=== PATIENT | male | born 1980 | race African-American/Black ===

== ENCOUNTER 2017-11-27 11:40 | Inpatient (IN) | payer OTHER ==
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
[2017-11-27 12:29] LABS: PH,URINE 5.5 (4.5-8); URINE APPEARANCE Clear; URINE BILIRUBIN Negative (NEGATIVE); URINE GLUCOSE (UA) Negative (NEGATIVE); URINE KETONE Negative (NEGATIVE); URINE LEUK ESTERASE Negative (NEGATIVE); URINE NITRITE Negative (NEGATIVE); URINE PROTEIN Negative (NEGATIVE); URINE UROBILINOGEN 0.2 (0.2-1.0)
[2017-11-27] MEDS ORDERED: SODIUM CHLORIDE 1,000 ML IV STA (12:34)
[2017-11-27] MEDS ORDERED: ONDANSETRON 4 MG/2 ML VIAL IVPB ONE (12:34)
[2017-11-27] MEDS ORDERED: PANTOPRAZOLE SODIUM 40 MG in SODIUM CHLORIDE 100 ML IVPB ONE (12:34)
[2017-11-27] MEDS ORDERED: morphine CARPU-JECT 4 MG/1 ML DISP.SYRIN IVPUSH ONE ×3 (12:35→16:31)
[2017-11-27 12:41] LABS: URINE BLOOD 1+ (NEGATIVE); URINE COLOR YELLOW
[2017-11-27] MEDS ORDERED: ONDANSETRON 4 MG/2 ML VIAL ONE (12:45)
[2017-11-27] MEDS ORDERED: morphine SULFATE 4 MG/ML VIAL ONE ×3 (12:45→15:52)
[2017-11-27] MEDS ORDERED: PANTOPRAZOLE SODIUM 40 MG VIAL ONE (12:45)
[2017-11-27 13:07] LABS: ALBUMIN 4.2 g/dl (3.5-5.0); ALK PHOS 60 U/L (32-92); ANION GAP 7 (8-16); BILIRUBIN,TOTAL 0.6 mg/dl (0.2-1.0); BLOOD UREA NITROGEN 12 mg/dl (7-18); CALCIUM 9.2 mg/dl (8.4-10.2); CHLORIDE 101 mmol/L (98-107); CO2 27 mmol/L (22-28); CREATININE 1.1 mg/dl (0.6-1.3); GLUCOSE,RANDOM 102 mg/dl (74-106); SGOT/AST 19 U/L (10-42); SGPT/ALT 24 U/L (10-40); SODIUM 135 mmol/L (136-145); TOT PROT 7.4 g/dl (6.4-8.3)
[2017-11-27 13:08] LABS: BASO % 0.4 % (0-2.0); EOS % 0.4 % (0-4.5); HEMATOCRIT 49.4 % (35.4-49); LYMPH % 12.8 % (8-40); MCH 31.6 pg (25.7-33.7); MCHC 34.4 g/dl (32.0-35.9); MEAN CELL VOLUME 91.8 fl (80-96); MONO % 5.9 % (3.8-10.2); NEUT % 80.5 % (42.8-82.8); PLATELET COUNT 318 K/MM3 (134-434); RBC 5.38 M/mm3 (4.00-5.60); RDW 12.2 % (11.9-15.9); WHITE BLOOD COUNT 17.6 K/mm3 (4.0-10.8)
[2017-11-27 13:32] LABS: URINE WBC 0-2 (0-2)
[2017-11-27 13:33] LABS: EPI CELLS NONE SEEN /HPF; URINE BACTERIA NONE SEEN /hpf (NEGATIVE)
[2017-11-27 13:58] LABS: LIPASE 147 U/L (73-393)
[2017-11-27] MEDS ORDERED: PIPERACIL/TAZOB 3.375 GM 3.375 GM/50 ML PREMIX IVPB ONE (15:15)
[2017-11-27] MEDS ORDERED: PIPERACILLIN/TAZOBACTAM 3.375 GM VIAL IVPB ONE (15:42)
[2017-11-27] MEDS ORDERED: MORPHINE SULFATE 10 MG/1 ML *VIAL IVPUSH PRN (16:02)
[2017-11-27] MEDS ORDERED: ONDANSETRON 4 MG/2 ML VIAL IVPUSH PRN (16:04)
--- NOTE | 2017-11-27 16:13 | HP ---
Admitting History and Physical - Admission Chief Complaint: abdominal pain History of Present Illness: This is a 37 year old male with hx of epilepsy s/p hard plate insertion ~5 years ago at [facility] in [place] presented with abdominal pain over the last few months and in the last few days it worsening. Last night he was nauseated and vomited, NBNB. He still has lower abdominal tenderness to palpation. He denies fever, chills, sob, cp. 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: Yes: Other (epilepsy s/p hard plate placemet ~ 5 years ago) - Smoking History Smoking history: Never smoked Have you smoked in the past 12 months: No - Alcohol/Substance Use Hx Alcohol Use: Yes (social ) History of Substance Use: reports: Marijuana - Social History Usual Living Arrangement: Yes: Alone ADL: Independent Home Medications - Allergies Allergies/Adverse Reactions: Allergies Allergy/AdvReac Type Severity Reaction Status Date / Time No Known Allergies Allergy Verified 11/27/17 11:43 - Home Medications Home Medications: Ambulatory Orders NK [No Known Home Medication] 11/27/17 Review of Systems - Review of Systems Constitutional: reports: No Symptoms Eyes: reports: No Symptoms HENT: reports: No Symptoms Neck: reports: No Symptoms Cardiovascular: reports: No Symptoms Respiratory: reports: No Symptoms Gastrointestinal: reports: Abdominal Pain, Nausea, Vomiting Genitourinary: reports: No Symptoms Musculoskeletal: reports: No Symptoms Integumentary: reports: No Symptoms Neurological: reports: No Symptoms Endocrine: reports: No Symptoms Hematology/Lymphatic: reports: No Symptoms Psychiatric: reports: No Symptoms Physical Examination Vital Signs: Vital Signs Temperature 99.5 F 11/27/17 11:40 Pulse Rate 112 H 11/27/17 11:40 Respiratory Rate 20 11/27/17 11:40 Blood Pressure 152/96 11/27/17 11:40 O2 Sat by Pulse Oximetry (%) 96 11/27/17 11:40 Constitutional: Yes: Well Nourished Eyes: Yes: Conjunctiva Clear HENT: Yes: Atraumatic Neck: Yes: Supple Cardiovascular: Yes: Regular Rate and Rhythm, S1, S2 Respiratory: Yes: Regular, CTA Bilaterally Gastrointestinal: Yes: Normal Bowel Sounds, Soft Renal/: Yes: WNL Extremities: Yes: WNL Edema: No Integumentary: Yes: WNL Neurological: Yes: Alert, Oriented, Cran Nerves II-XII Intact Psychiatric: Yes: Alert, Oriented Labs: CBC, BMP 11/27/17 12:15 11/27/17 12:15 Imaging - Results Cat Scan: Report Reviewed (marked thickening and irregularity of the proximal sigmoid colon w/ inflammatory stranding and trace free fluid c/w acute diverticulitis, no abscess seen) Problem List - Problems (1) Epilepsia Code(s): G40.909 - EPILEPSY, UNSP, NOT INTRACTABLE, WITHOUT STATUS EPILEPTICUS (2) Acute diverticulitis Code(s): K57.92 - DVTRCLI OF INTEST, PART UNSP, W/O PERF OR ABSCESS W/O BLEED Assessment/Plan Assessment: 37 year old male with epilepsy admitted with acute diverticulitis Plan: 1. Acute diverticulitis - x1 dose zosyn in ED - Start NS 100cc/hr - NPO - Abx per ID - ID consulted 2. Leukocytosis - Due to above 3. Epilepsy - s/p hard plate surgery, pt vague on details - Dose not take meds 4. DVT - Heparin TID Visit type - Emergency Visit Emergency Visit: Yes ED Registration Date: 11/27/17 Care time: The patient presented to the Emergency Department on the above date and was hospitalized for further evaluation of their emergent condition. - New Patient This patient is new to me today: Yes Date on this admission: 11/27/17 - Critical Care Critical Care patient: No
--- NOTE | 2017-11-27 16:58 | CON.ID ---
Consult Consult Specialty:: infectious diseases Reason for Consultation:: ac diverticulitits,leukocytosis - History of Present Illness Chief Complaint: abd pain History of Present Illness: 37 year old male with hx of epilepsy s/p hard plate insertion ~5 years ago at [facility] in [place] presented with abdominal pain over the last few months and in the last few days it worsening. 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 ~ 5 years ago) - Alcohol/Substance Use Hx Alcohol Use: Yes (social ) History of Substance Use: reports: Marijuana - Smoking History Smoking history: Never smoked Have you smoked in the past 12 months: No - Social History ADL: Independent Home Medications - Allergies Allergies/Adverse Reactions: Allergies Allergy/AdvReac Type Severity Reaction Status Date / Time No Known Allergies Allergy Verified 11/27/17 11:43 - Home Medications Home Medications: Ambulatory Orders NK [No Known Home Medication] 11/27/17 Review of Systems - Review of Systems Constitutional: reports: No Symptoms Eyes: reports: No Symptoms HENT: reports: No Symptoms Neck: reports: No Symptoms Cardiovascular: reports: No Symptoms Respiratory: reports: No Symptoms Gastrointestinal: reports: Abdominal Pain, Nausea Genitourinary: reports: No Symptoms Musculoskeletal: reports: No Symptoms Integumentary: reports: No Symptoms Neurological: reports: No Symptoms Endocrine: reports: No Symptoms Hematology/Lymphatic: reports: No Symptoms Psychiatric: reports: No Symptoms Physical Exam Vital Signs: Vital Signs Temperature 98.1 F 11/27/17 16:00 Pulse Rate 81 11/27/17 16:00 Respiratory Rate 18 11/27/17 16:00 Blood Pressure 138/75 11/27/17 16:00 O2 Sat by Pulse Oximetry (%) 98 11/27/17 16:00 Constitutional: Yes: Well Nourished, Moderate Distress, Obese Eyes: Yes: Conjunctiva Clear Cardiovascular: Yes: Regular Rate and Rhythm Respiratory: Yes: Regular, CTA Bilaterally Gastrointestinal: Yes: Soft, Hypoactive Bowel Sounds Musculoskeletal: Yes: WNL Extremities: Yes: WNL Neurological: Yes: Alert, Oriented Psychiatric: Yes: Alert, Oriented Labs: CBC, BMP 11/27/17 12:15 11/27/17 12:15 Imaging - Results Cat Scan: Report Reviewed, Image Reviewed Assessment/Plan ac divertculitis abd pain leukocytosis plan will star patient on abx hydration rest as per primary team
[2017-11-27] MEDS ORDERED: VANCOMYCIN 1,250 MG in DEXTROSE 5%-WATER - 250 ML IVPB SCH (17:00)
[2017-11-27] MEDS: SODIUM CHLORIDE 1,000 ML IV SCH (17:30)
[2017-11-27 17:51] LABS: URINE MUCUS 1+
[2017-11-27] MEDS ORDERED: PIPERACILLIN/TAZOB 3.375 GM 3.375 GM in DEXTROSE 5%-WATER - 100 ML IVPB SCH (18:00)
[2017-11-27] MEDS ORDERED: morphine CARPU-JECT 2 MG/1 ML DISP.SYRIN ONE (18:33)
[2017-11-27 19:05] VITALS: BMI 39.0
[2017-11-27] MEDS: PIPERACILLIN/TAZOB 3.375 GM/50 ML PRE-DOCKED IVPB SCH (21:53)
[2017-11-27] MEDS: HEPARIN NA (PORCINE) 5,000 UNITS/ML 1ML VIAL SQ SCH (21:53)
[2017-11-27] MEDS: morphine CARPU-JECT 2 MG/1 ML DISP.SYRIN IVPUSH PRN (22:28)
[2017-11-28] MEDS: morphine CARPU-JECT 2 MG/1 ML DISP.SYRIN IVPUSH PRN ×2 (05:29→08:37)
[2017-11-28] MEDS: HEPARIN NA (PORCINE) 5,000 UNITS/ML 1ML VIAL SQ SCH ×3 (05:29→21:16)
[2017-11-28 07:40] LABS: BASO % 2.4 % (0-2.0); EOS % 0.9 % (0-4.5); HEMATOCRIT 45.4 % (35.4-49); HEMOGLOBIN 15.2 GM/dl (11.7-16.9); LYMPH % 18.4 % (8-40); MCH 30.9 pg (25.7-33.7); MCHC 33.5 g/dl (32.0-35.9); MEAN CELL VOLUME 92.4 fl (80-96); MEAN PLT VOLUME 8.6 fl (7.5-11.1); MONO % 8.7 % (3.8-10.2); NEUT % 69.6 % (42.8-82.8); PLATELET COUNT 290 K/MM3 (134-434); RBC 4.91 M/mm3 (4.00-5.60); RDW 12.2 % (11.9-15.9); WHITE BLOOD COUNT 11.9 K/mm3 (4.0-10.8)
[2017-11-28 08:22] LABS: ALBUMIN 3.7 g/dl (3.5-5.0); ALK PHOS 53 U/L (32-92); ANION GAP 7 (8-16); BILIRUBIN,TOTAL 0.7 mg/dl (0.2-1.0); BLOOD UREA NITROGEN 12 mg/dl (7-18); CALCIUM 8.9 mg/dl (8.4-10.2); CHLORIDE 100 mmol/L (98-107); CO2 26 mmol/L (22-28); GLUCOSE,RANDOM 87 mg/dl (74-106); POTASSIUM 4.2 mmol/L (3.5-5.1); SGOT/AST 12 U/L (10-42); SGPT/ALT 18 U/L (10-40); SODIUM 133 mmol/L (136-145); TOT PROT 6.7 g/dl (6.4-8.3)
[2017-11-28] MEDS ORDERED: morphine CARPU-JECT 2 MG/1 ML DISP.SYRIN IVPUSH PRN ×2 (08:51→09:15)
--- NOTE | 2017-11-28 08:52 | PN ---
Physical Exam: SUBJECTIVE: Patient seen and examined. Complaining of severe LLQ pain which has not been alleviated by 2mg morphine q6h. No fevers/chills. OBJECTIVE: Vital Signs Period Temp Pulse Resp BP Sys/Oro Pulse Ox Last 24 Hr 98.1 F-99.5 F 81-112 16-20 128-152/75-96 96-99 GENERAL: The patient is awake, alert, and fully oriented, in some distress secondary to pain. HEAD: Normal with no signs of trauma. EYES: PERRL, extraocular movements intact, sclera anicteric, conjunctiva clear. No ptosis. ENT: Ears normal, nares patent, oropharynx clear without exudates, moist mucous membranes. NECK: Trachea midline, full range of motion, supple. LUNGS: Breath sounds equal, clear to auscultation bilaterally, no wheezes, no crackles, no accessory muscle use. HEART: Regular rate and rhythm, S1, S2 without murmur, rub or gallop. ABDOMEN: Soft, tender to gentle palpation LLW, nondistended, no peritoneal signs. EXTREMITIES: 2+ pulses, warm, well-perfused, no edema. NEUROLOGICAL: Cranial nerves II through XII grossly intact. Normal speech, gait not observed. PSYCH: Normal mood, normal affect. SKIN: Warm, dry, normal turgor, no rashes or lesions noted Laboratory Results - last 24 hr 11/27/17 11/27/17 11/27/17 11:48 12:15 12:15 WBC 17.6 H RBC 5.38 Hgb 17.0 H Hct 49.4 H MCV 91.8 MCH 31.6 MCHC 34.4 RDW 12.2 Plt Count 318 MPV 9.0 Neutrophils % 80.5 Lymphocytes % 12.8 Monocytes % 5.9 Eosinophils % 0.4 Basophils % 0.4 Sodium 135 L Potassium 4.0 Chloride 101 Carbon Dioxide 27 Anion Gap 7 L BUN 12 Creatinine 1.1 Creat Clearance w eGFR > 60 Random Glucose 102 Calcium 9.2 Total Bilirubin 0.6 AST 19 ALT 24 Alkaline Phosphatase 60 Total Protein 7.4 Albumin 4.2 Lipase 147 Urine Color Yellow Urine Appearance Clear Urine pH 5.5 Ur Specific [place] >= 1.030 H Urine Protein Negative Urine Glucose (UA) Negative Urine Ketones Negative Urine Blood 1+ H Urine Nitrite Negative Urine Bilirubin Negative Urine Urobilinogen 0.2 Ur Leukocyte Esterase Negative Urine RBC 3-5 Urine WBC 0-2 Ur Epithelial Cells None seen Urine Bacteria None seen Urine Mucus 1+ 11/28/17 11/28/17 07:30 07:30 WBC 11.9 H D RBC 4.91 Hgb 15.2 D Hct 45.4 MCV 92.4 MCH 30.9 MCHC 33.5 RDW 12.2 Plt Count 290 MPV 8.6 Neutrophils % 69.6 Lymphocytes % 18.4 D Monocytes % 8.7 Eosinophils % 0.9 D Basophils % 2.4 H D Sodium 133 L Potassium 4.2 Chloride 100 Carbon Dioxide 26 Anion Gap 7 L BUN 12 Creatinine 1.0 Creat Clearance w eGFR > 60 Random Glucose 87 Calcium 8.9 Total Bilirubin 0.7 AST 12 D ALT 18 D Alkaline Phosphatase 53 Total Protein 6.7 Albumin 3.7 Lipase Urine Color Urine Appearance Urine pH Ur Specific [place] Urine Protein Urine Glucose (UA) Urine Ketones Urine Blood Urine Nitrite Urine Bilirubin Urine Urobilinogen Ur Leukocyte Esterase Urine RBC Urine WBC Ur Epithelial Cells Urine Bacteria Urine Mucus Active Medications Generic Name Dose Route Start Last Admin Trade Name Freq PRN Reason Stop Dose Admin Heparin Sodium (Porcine) 5,000 unit 11/27/17 22:00 11/28/17 05:29 Heparin - SQ 5,000 unit TID ANABELLA Administration Sodium Chloride 1,000 mls @ 100 mls/hr 11/27/17 16:15 11/27/17 17:30 Normal Saline - IV 100 mls/hr ASDIR ANABELLA Administration Morphine Sulfate 4 mg 11/28/17 08:51 Morphine Injection - IVPUSH Q4H PRN PAIN LEVEL 4 - 6 Ondansetron HCl 4 mg 11/27/17 16:04 Zofran Injection IVPUSH Q6H PRN NAUSEA Pantoprazole Sodium 40 mg 11/28/17 10:00 Protonix Iv IVPUSH DAILY ANABELLA Piperacillin Sod/Tazobactam Sod 3.375 gm 11/27/17 22:00 11/27/17 21:53 Zosyn 3.375gm Ivpb (Pre-Docked) IVPB 3.375 gm Q8H-IV ANABELLA Administration ASSESSMENT/PLAN: 37 year old male with epilepsy admitted with acute diverticulitis. 1. Acute diverticulitis - Continue Zosyn per ID - Continue IV - NPO - Patient reports he has had "many" episodes of diverticulitis in the past, treated at [facility]. He is unsure exactly how many but is sure it is >3. Will consult surgery - discussed with Dr. Pizarro. 2. Leukocytosis - Improving 3. Epilepsy - s/p hard plate surgery, pt vague on details - Dose not take meds 4. DVT - Heparin TID Visit type Visit type - Emergency Visit Emergency Visit: Yes ED Registration Date: 11/27/17 Care time: The patient presented to the Emergency Department on the above date and was hospitalized for further evaluation of their emergent condition. - New Patient This patient is new to me today: Yes Date on this admission: 11/30/17 - Critical Care Critical Care patient: No
[2017-11-28] MEDS ORDERED: morphine CARPU-JECT 4 MG/1 ML DISP.SYRIN IVPB ONE (09:01)
[2017-11-28] MEDS ORDERED: morphine SULFATE 4 MG/ML VIAL IV PRN (09:13)
[2017-11-28] MEDS: PANTOPRAZOLE SODIUM 40 MG VIAL IVPUSH SCH (09:22)
[2017-11-28] MEDS: PIPERACILLIN/TAZOB 3.375 GM/50 ML PRE-DOCKED IVPB SCH ×2 (09:40→17:34)
--- NOTE | 2017-11-28 12:25 | CONSULT ---
- Consultation REQUESTING PROVIDER: Melody Mendosa NP CONSULT REQUEST: We have been asked to surgically evaluate this patient for diverticulitis PCP:Melody Mendosa NP HISTORY OF PRESENT ILLNESS:37 y/o male presented w/ sharp sudden onset of LLQ abdominal pain w/associated nausea and vomiting; he last had this 5 years ago and ? before that ?; he came to the ER for evaluation. He has no other GI/ c/o; he states he had colonoscopy in the past at [facility] in the [place]; he states he was ? never told he had diverticulosis ?. He is a fair historian. PMHx: seizure disorder PSHx: cranial surgery Home Medications Medication Instructions Recorded NK [No Known Home Medication] 11/27/17 Allergies Allergy/AdvReac Type Severity Reaction Status Date / Time No Known Allergies Allergy Verified 11/27/17 11:43 PHYSICAL EXAM: GENERAL: Awake, alert, and fully oriented, in slight distress c/o LLQ pain.. HEAD: Normal with no signs of trauma. EYES: PERRL, sclera anicteric, conjunctiva clear. NECK: Normal ROM, supple without lymphadenopathy, JVD, or masses. ABDOMEN: Soft,LLQ tendernes w/guarding, not distended, normoactive bowel sounds , no rebound, no masses. No organomegaly. No hernias or sign of an acute surgical abdomen. MUSCULOSKELETAL: Normal ROM at all joints. No bony deformities or tenderness. No CVA tenderness. UPPER EXTREMITIES: 2+ pulses, warm, well-perfused. No cyanosis. Cap refill <2 seconds. No peripheral edema. LOWER EXTREMITIES: 2+ pulses, warm, well-perfused. No calf tenderness. No peripheral edema. NEUROLOGICAL: Normal speech, gait not observed. PSYCH: Cooperative. Good eye contact. Appropriate mood and affect. SKIN: Warm, dry, normal turgor, no rashes or lesions noted. Vital Signs Temperature 98.5 F 11/28/17 10:38 Pulse Rate 88 11/28/17 10:38 Respiratory Rate 18 11/28/17 10:38 Blood Pressure 126/72 11/28/17 10:38 O2 Sat by Pulse Oximetry (%) 96 11/28/17 06:03 Lab Results WBC 11.9 K/mm3 (4.0-10.8) H D 11/28/17 07:30 RBC 4.91 M/mm3 (4.00-5.60) 11/28/17 07:30 Hgb 15.2 GM/dl (11.7-16.9) D 11/28/17 07:30 Hct 45.4 % (35.4-49) 11/28/17 07:30 MCV 92.4 fl (80-96) 11/28/17 07:30 MCHC 33.5 g/dl (32.0-35.9) 11/28/17 07:30 RDW 12.2 % (11.9-15.9) 11/28/17 07:30 Plt Count 290 K/MM3 (134-434) 11/28/17 07:30 Sodium 133 mmol/L (136-145) L 11/28/17 07:30 Potassium 4.2 mmol/L (3.5-5.1) 11/28/17 07:30 Chloride 100 mmol/L (98-107) 11/28/17 07:30 Carbon Dioxide 26 mmol/L (22-28) 11/28/17 07:30 Anion Gap 7 (8-16) L 11/28/17 07:30 BUN 12 mg/dl (7-18) 11/28/17 07:30 Creatinine 1.0 mg/dl (0.6-1.3) 11/28/17 07:30 Random Glucose 87 mg/dl (74-106) 11/28/17 07:30 Calcium 8.9 mg/dl (8.4-10.2) 11/28/17 07:30 CT a/p reviewed; report and images IMP: acute sigmoid diverticulitis w/p perforation and/or abscess formation. PLAN: Continue NPO/IVF/IVABS; would get f/u imaging after the weekend; if he responds to the tx. plan he will need outpatient colonoscopy in 8-12 weeks and of course surgical f/u; will f/u. Petey Pizarro MD [facility] Visit type - Case Type Case Type: ED Admission - Emergency Emergency Visit: Yes ED Registration Date: 11/27/17 Care time: The patient presented to the Emergency Department on the above date and was hospitalized for further evaluation of their emergent condition. - New patient This patient is new to me today: Yes Date on this admission: 11/28/17
[2017-11-28 12:30] LABS: LIPASE 106 U/L (73-393)
--- NOTE | 2017-11-28 14:54 | PN ---
Progress Note, Physician History of Present Illness: Pt seen and examined. Chart reviewed, lab/imaging results noted. Today he states he still has abd pain. No fever/chills/n/v/d. - Current Medication List Current Medications: Active Medications Heparin Sodium (Porcine) (Heparin -) 5,000 unit SQ TID [facility] Last Admin: 11/28/17 13:16 Dose: 5,000 unit Sodium Chloride (Normal Saline -) 1,000 mls @ 100 mls/hr IV ASDIR [facility] Last Admin: 11/27/17 17:30 Dose: 100 mls/hr Morphine Sulfate (Morphine Sulfate) 4 mg IV ONCE PRN PRN Reason: PAIN LEVEL 6-10 Stop: 11/29/17 09:12 Last Admin: 11/28/17 09:20 Dose: 4 mg Morphine Sulfate (Morphine Sulfate) 4 mg IVPUSH Q4H PRN PRN Reason: PAIN LEVEL 4 - 6 Stop: 12/01/17 13:22 Ondansetron HCl (Zofran Injection) 4 mg IVPUSH Q6H PRN PRN Reason: NAUSEA Pantoprazole Sodium (Protonix Iv) 40 mg IVPUSH DAILY [facility] Last Admin: 11/28/17 09:22 Dose: 40 mg Piperacillin Sod/Tazobactam Sod (Zosyn 3.375gm Ivpb (Pre-Docked)) 3.375 gm IVPB Q8H-IV [facility] Last Admin: 11/28/17 09:40 Dose: 3.375 gm - Objective Vital Signs: Vital Signs Temperature 98.5 F 11/28/17 10:38 Pulse Rate 88 11/28/17 10:38 Respiratory Rate 18 11/28/17 10:38 Blood Pressure 126/72 11/28/17 10:38 O2 Sat by Pulse Oximetry (%) 96 11/28/17 06:03 Constitutional: Yes: No Distress Cardiovascular: Yes: Regular Rate and Rhythm Respiratory: Yes: CTA Bilaterally Gastrointestinal: Yes: Normal Bowel Sounds, Soft, Tenderness (b/l Lower abd pain L>R) Genitourinary: Yes: WNL Extremities: Yes: WNL Integumentary: Yes: WNL Neurological: Yes: Alert, Oriented Labs: CBC, BMP 11/28/17 07:30 11/28/17 07:30 Problem List - Problems (1) Acute diverticulitis Code(s): K57.92 - DVTRCLI OF INTEST, PART UNSP, W/O PERF OR ABSCESS W/O BLEED (2) Epilepsia Code(s): G40.909 - EPILEPSY, UNSP, NOT INTRACTABLE, WITHOUT STATUS EPILEPTICUS Assessment/Plan leukocytosis resolving - continue Zosyn - monitor vitals - surgery following pain control
[2017-11-28] MEDS: SODIUM CHLORIDE 1,000 ML IV SCH (17:34)
[2017-11-28] MEDS: morphine SULFATE 4 MG/ML VIAL IVPUSH PRN (20:05)
[2017-11-29] MEDS: PIPERACILLIN/TAZOB 3.375 GM/50 ML PRE-DOCKED IVPB SCH ×3 (01:45→18:01)
[2017-11-29] MEDS: morphine SULFATE 4 MG/ML VIAL IVPUSH PRN (05:03)
[2017-11-29] MEDS: HEPARIN NA (PORCINE) 5,000 UNITS/ML 1ML VIAL SQ SCH ×3 (07:00→21:53)
[2017-11-29 08:48] LABS: BASO % 0.5 % (0-2.0); EOS % 1.8 % (0-4.5); HEMATOCRIT 44.3 % (35.4-49); HEMOGLOBIN 14.9 GM/dl (11.7-16.9); LYMPH % 25.8 % (8-40); MCHC 33.6 g/dl (32.0-35.9); MEAN CELL VOLUME 92.3 fl (80-96); MEAN PLT VOLUME 9.5 fl (7.5-11.1); MONO % 9.7 % (3.8-10.2); NEUT % 62.2 % (42.8-82.8); PLATELET COUNT 275 K/MM3 (134-434); RDW 12.1 % (11.9-15.9); WHITE BLOOD COUNT 9.1 K/mm3 (4.0-10.8)
[2017-11-29 08:54] LABS: ANION GAP 9 (8-16); BLOOD UREA NITROGEN 14 mg/dl (7-18); CALCIUM 8.7 mg/dl (8.4-10.2); CHLORIDE 102 mmol/L (98-107); CO2 24 mmol/L (22-28); GLUCOSE,RANDOM 65 mg/dl (74-106); POTASSIUM 3.8 mmol/L (3.5-5.1); SODIUM 135 mmol/L (136-145)
[2017-11-29] MEDS: PANTOPRAZOLE SODIUM 40 MG VIAL IVPUSH SCH (09:26)
[2017-11-29] MEDS ORDERED: ACETAMINOPHEN 1000 MG/100 ML VIAL (NON FORMULARY) IVPB PRN (10:23)
[2017-11-29] MEDS ORDERED: D5-1/2NS+10 MEQ KCL - 10 MEQ/1,000 ML INFUS.BAG IV SCH (10:30)
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
[2017-11-29] MEDS: DEXTROSE 5%-0.45% SALINE 1,000 ML IV SCH (11:31)
--- NOTE | 2017-11-29 16:32 | PN ---
Progress Note, Physician History of Present Illness: Pt is feeling better. Less abd pain today. Had 1 loose BM earlier today. No new complaints. - Current Medication List Current Medications: Active Medications Acetaminophen (Ofirmev Injection -) 1,000 mg IVPB Q6H PRN PRN Reason: PAIN LEVEL 1-5 Heparin Sodium (Porcine) (Heparin -) 5,000 unit SQ TID [facility] Last Admin: 11/29/17 14:00 Dose: Not Given Dextrose/Sodium Chloride (D5-1/2ns -) 1,000 mls @ 100 mls/hr IV ASDIR [facility] Last Admin: 11/29/17 11:31 Dose: 100 mls/hr Morphine Sulfate (Morphine Sulfate) 4 mg IVPUSH Q4H PRN PRN Reason: PAIN LEVEL 4 - 6 Stop: 12/01/17 13:22 Last Admin: 11/29/17 05:03 Dose: 4 mg Ondansetron HCl (Zofran Injection) 4 mg IVPUSH Q6H PRN PRN Reason: NAUSEA Pantoprazole Sodium (Protonix Iv) 40 mg IVPUSH DAILY [facility] Last Admin: 11/29/17 09:26 Dose: 40 mg Piperacillin Sod/Tazobactam Sod (Zosyn 3.375gm Ivpb (Pre-Docked)) 3.375 gm IVPB Q8H-IV [facility] Last Admin: 11/29/17 09:31 Dose: 3.375 gm - Objective Vital Signs: Vital Signs Temperature 98.8 F 11/29/17 14:00 Pulse Rate 68 11/29/17 14:00 Respiratory Rate 18 11/29/17 14:00 Blood Pressure 124/75 11/29/17 14:00 O2 Sat by Pulse Oximetry (%) 98 11/29/17 14:00 Constitutional: Yes: No Distress, Calm Cardiovascular: Yes: Regular Rate and Rhythm Respiratory: Yes: Regular Gastrointestinal: Yes: Normal Bowel Sounds, Soft, Tenderness (lower abdominal pain, no guarding) Genitourinary: Yes: WNL Neurological: Yes: Alert, Oriented Labs: CBC, BMP 11/29/17 08:00 11/29/17 08:00 Problem List - Problems (1) Acute diverticulitis Code(s): K57.92 - DVTRCLI OF INTEST, PART UNSP, W/O PERF OR ABSCESS W/O BLEED (2) Epilepsia Code(s): G40.909 - EPILEPSY, UNSP, NOT INTRACTABLE, WITHOUT STATUS EPILEPTICUS Qualifiers: Epilepsy type: unspecified Assessment/Plan Acute diverticulitis - appears to be clinically improving, afebrile, leukocytosis resolved - continue Zosyn - monitor vitals - surgery following
[2017-11-30] MEDS: PIPERACILLIN/TAZOB 3.375 GM/50 ML PRE-DOCKED IVPB SCH ×3 (03:00→18:04)
[2017-11-30] MEDS ORDERED: PT OWN MED DRAWER 7, Y5N ONE (05:41)
[2017-11-30] MEDS: HEPARIN NA (PORCINE) 5,000 UNITS/ML 1ML VIAL SQ SCH ×3 (06:13→22:22)
[2017-11-30] MEDS ORDERED: oxyCODONE HCL 5 MG TABLET PO PRN (07:01)
--- NOTE | 2017-11-30 07:02 | PN ---
Physical Exam: SUBJECTIVE: Patient seen and examined. Reports that he is feeling much better. Abdominal pain has improved. Having stools. No fevers/chills or nausea/vomiting. OBJECTIVE: Vital Signs Period Temp Pulse Resp BP Sys/Oro Pulse Ox Last 24 Hr 97.8 F-98.9 F 63-88 18-19 116-131/75-98 96-100 GENERAL: The patient is awake, alert, and fully oriented, in no acute distress. HEAD: Normal with no signs of trauma. EYES: PERRL, extraocular movements intact, sclera anicteric, conjunctiva clear. No ptosis. ENT: Ears normal, nares patent, oropharynx clear without exudates, moist mucous membranes. NECK: Trachea midline, full range of motion, supple. LUNGS: Breath sounds equal, clear to auscultation bilaterally, no wheezes, no crackles, no accessory muscle use. HEART: Regular rate and rhythm, S1, S2 without murmur, rub or gallop. ABDOMEN: Soft, mild tenderness LLQ without guarding or rebound tenderness, nondistended, normoactive bowel sounds, no guarding, no rebound, no hepatosplenomegaly, no masses. EXTREMITIES: 2+ pulses, warm, well-perfused, no edema. NEUROLOGICAL: Cranial nerves II through XII grossly intact. Normal speech, gait not observed. PSYCH: Normal mood, normal affect. SKIN: Warm, dry, normal turgor, no rashes or lesions noted Laboratory Results - last 24 hr 11/29/17 11/29/17 08:00 08:00 WBC 9.1 RBC 4.80 Hgb 14.9 Hct 44.3 MCV 92.3 MCH 31.0 MCHC 33.6 RDW 12.1 Plt Count 275 MPV 9.5 D Neutrophils % 62.2 Lymphocytes % 25.8 D Monocytes % 9.7 Eosinophils % 1.8 D Basophils % 0.5 Sodium 135 L Potassium 3.8 Chloride 102 Carbon Dioxide 24 Anion Gap 9 BUN 14 Creatinine 1.0 Random Glucose 65 L D Calcium 8.7 Active Medications Generic Name Dose Route Start Last Admin Trade Name Freq PRN Reason Stop Dose Admin Acetaminophen 1,000 mg 11/29/17 10:23 Ofirmev Injection - IVPB Q6H PRN PAIN LEVEL 1-5 Heparin Sodium (Porcine) 5,000 unit 11/27/17 22:00 11/30/17 06:13 Heparin - SQ Not Given TID ANABELLA Dextrose/Sodium Chloride 1,000 mls @ 100 mls/hr 11/29/17 11:30 11/29/17 11:31 D5-1/2ns - IV 100 mls/hr ASDIR ANABELLA Administration Morphine Sulfate 4 mg 11/28/17 13:23 11/29/17 05:03 Morphine Sulfate IVPUSH 12/01/17 13:22 4 mg Q4H PRN Administration PAIN LEVEL 4 - 6 Ondansetron HCl 4 mg 11/27/17 16:04 Zofran Injection IVPUSH Q6H PRN NAUSEA Pantoprazole Sodium 40 mg 11/28/17 10:00 11/29/17 09:26 Protonix Iv IVPUSH 40 mg DAILY [facility] Administration Piperacillin Sod/Tazobactam Sod 3.375 gm 11/27/17 22:00 11/30/17 03:00 Zosyn 3.375gm Ivpb (Pre-Docked) IVPB 3.375 gm Q8H-IV [facility] Administration ASSESSMENT/PLAN: 37 year old male with epilepsy admitted with acute diverticulitis. 1. Acute diverticulitis - Continue Zosyn per ID - Continue IV fluids - Symptoms improved - trial of clears today - Patient reports he has had "many" episodes of diverticulitis in the past, treated at [facility]. He is unsure exactly how many but is sure it is >3. Surgery following. 2. Leukocytosis - Resolved 3. Epilepsy - s/p hard plate surgery, pt vague on details - Dose not take meds 4. DVT - Heparin TID DISPO: Requires inpatient services pending advancement of diet/tolerance of oral antibiotics. Visit type - Emergency Visit Emergency Visit: Yes ED Registration Date: 11/27/17 Care time: The patient presented to the Emergency Department on the above date and was hospitalized for further evaluation of their emergent condition. - New Patient This patient is new to me today: No - Critical Care Critical Care patient: No
--- NOTE | 2017-11-30 07:52 | PN ---
Progress Note (short form) - Note Progress Note: Pt states that he is having loose/watery stools. Non-bloody. No nausea or emesis , he states that he is feeling better and hasn't used pain medications over the past day. Vital Signs Period Temp Pulse Resp BP Sys/Oro Pulse Ox Last 24 Hr 97.8 F-98.9 F 63-88 18-19 116-131/75-98 96-100 GEN: appears comfortable ABD: soft, non-distended, mild tenderness to mid abd Left>right at level of umbilicus. No rebound or gaurding CBC/Chem pending A/P: 37 yo male with acute diverticulitis, no abscess or collection Pt starting trial of clears today, d/w the patient if his pain or nausea worsens to resume npo D/w Dr. Pizarro, will need repeat imaging(ct scan)tomorrow Cont IV abx
[2017-11-30 09:14] LABS: BASO % 0.8 % (0-2.0); EOS % 2.5 % (0-4.5); HEMATOCRIT 44.4 % (35.4-49); HEMOGLOBIN 15.6 GM/dl (11.7-16.9); LYMPH % 25.2 % (8-40); MCH 31.9 pg (25.7-33.7); MCHC 35.1 g/dl (32.0-35.9); MEAN CELL VOLUME 90.9 fl (80-96); MEAN PLT VOLUME 9.2 fl (7.5-11.1); MONO % 8.9 % (3.8-10.2); NEUT % 62.6 % (42.8-82.8); PLATELET COUNT 319 K/MM3 (134-434); RBC 4.88 M/mm3 (4.00-5.60); RDW 11.9 % (11.9-15.9); WHITE BLOOD COUNT 7.8 K/mm3 (4.0-10.8)
[2017-11-30] MEDS: PANTOPRAZOLE SODIUM 40 MG VIAL IVPUSH SCH (10:00)
[2017-11-30 10:08] LABS: ALBUMIN 3.7 g/dl (3.5-5.0); ALK PHOS 46 U/L (32-92); ANION GAP 10 (8-16); BLOOD UREA NITROGEN 11 mg/dl (7-18); CALCIUM 8.9 mg/dl (8.4-10.2); CHLORIDE 100 mmol/L (98-107); CO2 25 mmol/L (22-28); CREATININE 1.1 mg/dl (0.6-1.3); GLUCOSE,RANDOM 85 mg/dl (74-106); MAGNESIUM 2.1 mg/dL (1.8-2.4); PHOSPHOROUS 4.1 mg/dl (2.5-4.6); POTASSIUM 4.1 mmol/L (3.5-5.1); SGOT/AST 14 U/L (10-42); SGPT/ALT 16 U/L (10-40); SODIUM 135 mmol/L (136-145); TOT PROT 6.9 g/dl (6.4-8.3)
[2017-11-30] MEDS: DEXTROSE 5%-0.45% SALINE 1,000 ML IV SCH (11:54)
--- NOTE | 2017-11-30 13:58 | EKG ---
Test Reason : Blood Pressure : / mmHG Vent. Rate : 093 BPM Atrial Rate : 093 BPM P-R Int : 174 ms QRS Dur : 078 ms QT Int : 326 ms P-R-T Axes : 052 012 024 degrees QTc Int : 405 ms NORMAL SINUS RHYTHM NORMAL ECG NO PREVIOUS ECGS AVAILABLE Confirmed by SHU PEREZ MD ([id number]) on 11/30/2017 1:58:22 PM Referred By: MD FREED Confirmed By:SHU PEREZ MD
--- NOTE | 2017-11-30 15:28 | PN ---
Progress Note, Physician History of Present Illness: feels better still has some abd pain - Current Medication List Current Medications: Active Medications Acetaminophen (Ofirmev Injection -) 1,000 mg IVPB Q6H PRN PRN Reason: PAIN LEVEL 1-5 Heparin Sodium (Porcine) (Heparin -) 5,000 unit SQ TID [facility] Last Admin: 11/30/17 06:13 Dose: Not Given Dextrose/Sodium Chloride (D5-1/2ns -) 1,000 mls @ 100 mls/hr IV ASDIR [facility] Last Admin: 11/30/17 11:54 Dose: 100 mls/hr Ondansetron HCl (Zofran Injection) 4 mg IVPUSH Q6H PRN PRN Reason: NAUSEA Oxycodone HCl (Roxicodone -) 5 mg PO Q6H PRN PRN Reason: PAIN LEVEL 6-10 Pantoprazole Sodium (Protonix Iv) 40 mg IVPUSH DAILY [facility] Last Admin: 11/30/17 10:00 Dose: 40 mg Piperacillin Sod/Tazobactam Sod (Zosyn 3.375gm Ivpb (Pre-Docked)) 3.375 gm IVPB Q8H-IV [facility] Last Admin: 11/30/17 10:00 Dose: 3.375 gm - Objective Vital Signs: Vital Signs Temperature 98.2 F 11/30/17 14:41 Pulse Rate 77 11/30/17 14:41 Respiratory Rate 18 11/30/17 14:41 Blood Pressure 129/92 11/30/17 14:41 O2 Sat by Pulse Oximetry (%) 95 11/30/17 14:41 Constitutional: Yes: No Distress, Calm Cardiovascular: Yes: Regular Rate and Rhythm Respiratory: Yes: Regular, CTA Bilaterally Gastrointestinal: Yes: Normal Bowel Sounds, Soft Musculoskeletal: Yes: WNL Extremities: Yes: WNL Neurological: Yes: Alert, Oriented Psychiatric: Yes: Alert, Oriented Labs: CBC, BMP 11/30/17 07:18 11/30/17 07:18 Assessment/Plan ac divertculitis abd pain leukocytosis Problem List - Problems (1) Acute diverticulitis Code(s): K57.92 - DVTRCLI OF INTEST, PART UNSP, W/O PERF OR ABSCESS W/O BLEED (2) Epilepsia Code(s): G40.909 - EPILEPSY, UNSP, NOT INTRACTABLE, WITHOUT STATUS EPILEPTICUS Qualifiers: Epilepsy type: unspecified plan conitnue abx wbc normal
[2017-12-01] MEDS: PIPERACILLIN/TAZOB 3.375 GM/50 ML PRE-DOCKED IVPB SCH ×3 (02:00→18:00)
[2017-12-01] MEDS: HEPARIN NA (PORCINE) 5,000 UNITS/ML 1ML VIAL SQ SCH ×3 (06:23→21:37)
--- NOTE | 2017-12-01 07:41 | PN ---
Physical Exam: SUBJECTIVE: Patient seen and examined, denies any abdominal pain or tactile fever. OBJECTIVE: patient is a 37 y/o male with a past medical history of epilepsy was admitted from the emergency for acute diverticullitis. Vital Signs Period Temp Pulse Resp BP Sys/Oro Pulse Ox Last 24 Hr 97.7 F-98.2 F 61-77 17-20 107-129/72-92 95-97 GENERAL: The patient is awake, alert, and fully oriented, in no acute distress. HEAD: Normal with no signs of trauma. EYES: PERRL, extraocular movements intact, sclera anicteric, conjunctiva clear. No ptosis. ENT: Ears normal, nares patent, oropharynx clear without exudates, moist mucous membranes. NECK: Trachea midline, full range of motion, supple. LUNGS: Breath sounds equal, clear to auscultation bilaterally, no wheezes, no crackles, no accessory muscle use. HEART: Regular rate and rhythm, S1, S2 without murmur, rub or gallop. ABDOMEN: Soft, nontender, nondistended, normoactive bowel sounds, no guarding, no rebound, no hepatosplenomegaly, no masses. EXTREMITIES: 2+ pulses, warm, well-perfused, no edema. NEUROLOGICAL: Cranial nerves II through XII grossly intact. Normal speech, gait not observed. PSYCH: Normal mood, normal affect. SKIN: Warm, dry, normal turgor, no rashes or lesions noted Laboratory Results - last 24 hr 11/30/17 11/30/17 07:18 07:18 WBC 7.8 RBC 4.88 Hgb 15.6 Hct 44.4 MCV 90.9 MCH 31.9 MCHC 35.1 RDW 11.9 Plt Count 319 MPV 9.2 Neutrophils % 62.6 Lymphocytes % 25.2 Monocytes % 8.9 Eosinophils % 2.5 Basophils % 0.8 Sodium 135 L Potassium 4.1 Chloride 100 Carbon Dioxide 25 Anion Gap 10 BUN 11 D Creatinine 1.1 Creat Clearance w eGFR > 60 Random Glucose 85 D Calcium 8.9 Phosphorus 4.1 Magnesium 2.1 Total Bilirubin 1.0 D AST 14 ALT 16 Alkaline Phosphatase 46 Total Protein 6.9 Albumin 3.7 Active Medications Generic Name Dose Route Start Last Admin Trade Name Freq PRN Reason Stop Dose Admin Acetaminophen 1,000 mg 11/29/17 10:23 Ofirmev Injection - IVPB Q6H PRN PAIN LEVEL 1-5 Heparin Sodium (Porcine) 5,000 unit 11/27/17 22:00 12/01/17 06:23 Heparin - SQ Not Given TID ANABELLA Dextrose/Sodium Chloride 1,000 mls @ 100 mls/hr 11/29/17 11:30 11/30/17 11:54 D5-1/2ns - IV 100 mls/hr ASDIR ANABELLA Administration Ondansetron HCl 4 mg 11/27/17 16:04 Zofran Injection IVPUSH Q6H PRN NAUSEA Oxycodone HCl 5 mg 11/30/17 07:01 Roxicodone - PO Q6H PRN PAIN LEVEL 6-10 Pantoprazole Sodium 40 mg 11/28/17 10:00 11/30/17 10:00 Protonix Iv IVPUSH 40 mg DAILY [facility] Administration Piperacillin Sod/Tazobactam Sod 3.375 gm 11/27/17 22:00 12/01/17 02:00 Zosyn 3.375gm Ivpb (Pre-Docked) IVPB 3.375 gm Q8H-IV [facility] Administration ASSESSMENT/PLAN: 1. Acute diverticulitis - Continue Zosyn per ID - ct scan of abd/pelvis reviewed unchanged from prior, extensive acute sigmoid diverticulitis - patient denies any abd pain, tolerating clear liquid diet, will advance to full liquids - will needed outpatient GI follow up last coloncopy was 2 years ago at [facility] normal as per patient. - general surgery consulted and following, pt had several episodes in past 2. Leukocytosis - Resolved 3. Epilepsy - s/p hard plate surgery, pt vague on details - Dose not take meds 4. DVT - Heparin TID DISPO: Requires inpatient services pending advancement of diet/tolerance of oral antibiotics. Visit type - Emergency Visit Emergency Visit: Yes ED Registration Date: 11/27/17 Care time: The patient presented to the Emergency Department on the above date and was hospitalized for further evaluation of their emergent condition. - New Patient This patient is new to me today: Yes Date on this admission: 12/01/17 - Critical Care Critical Care patient: No - Discharge Referral Referred to [facility] Med P.C.: No
--- NOTE | 2017-12-01 08:27 | PN ---
Progress Note (short form) - Note Progress Note: Attending Surgeon Seen in f/u; feels much better; no pain VSS AF abdo-soft; NT IMP: improved PLAN: F/U CT scan a/p today; continue present tx. Petey Pizarro MD FACS
[2017-12-01 08:54] LABS: ALBUMIN 3.7 g/dl (3.5-5.0); ALK PHOS 42 U/L (32-92); ANION GAP 6 (8-16); BILIRUBIN,TOTAL 0.9 mg/dl (0.2-1.0); BLOOD UREA NITROGEN 8 mg/dl (7-18); CALCIUM 8.9 mg/dl (8.4-10.2); CHLORIDE 103 mmol/L (98-107); CO2 27 mmol/L (22-28); CREATININE 1.1 mg/dl (0.6-1.3); GLUCOSE,RANDOM 97 mg/dl (74-106); POTASSIUM 3.8 mmol/L (3.5-5.1); SGOT/AST 13 U/L (10-42); SGPT/ALT 18 U/L (10-40); SODIUM 136 mmol/L (136-145); TOT PROT 6.6 g/dl (6.4-8.3)
[2017-12-01] MEDS: PANTOPRAZOLE SODIUM 40 MG VIAL IVPUSH SCH (09:26)
[2017-12-01 09:35] LABS: MEAN PLT VOLUME 8.1 fl (7.5-11.1); WHITE BLOOD COUNT 6.9 K/mm3 (4.0-10.8)
[2017-12-01 09:38] LABS: EOS % 3.4 % (0-4.5); HEMATOCRIT 43.4 % (35.4-49); HEMOGLOBIN 15.3 GM/dl (11.7-16.9); LYMPH % 29.2 % (8-40); MCH 31.3 pg (25.7-33.7); MCHC 35.3 g/dl (32.0-35.9); MEAN CELL VOLUME 88.7 fl (80-96); MONO % 9.6 % (3.8-10.2); NEUT % 56.8 % (42.8-82.8); PLATELET COUNT 367 K/MM3 (134-434); RBC 4.89 M/mm3 (4.00-5.60); RDW 11.7 % (11.9-15.9)
[2017-12-01] MEDS: DEXTROSE 5%-0.45% SALINE 1,000 ML IV SCH (13:28)
--- NOTE | 2017-12-01 18:03 | PN ---
Progress Note, Physician History of Present Illness: patient feeling much better abd soft - Current Medication List Current Medications: Active Medications Acetaminophen (Ofirmev Injection -) 1,000 mg IVPB Q6H PRN PRN Reason: PAIN LEVEL 1-5 Heparin Sodium (Porcine) (Heparin -) 5,000 unit SQ TID [facility] Last Admin: 12/01/17 13:28 Dose: Not Given Dextrose/Sodium Chloride (D5-1/2ns -) 1,000 mls @ 75 mls/hr IV ASDIR [facility] Last Admin: 12/01/17 13:28 Dose: 75 mls/hr Ondansetron HCl (Zofran Injection) 4 mg IVPUSH Q6H PRN PRN Reason: NAUSEA Oxycodone HCl (Roxicodone -) 5 mg PO Q6H PRN PRN Reason: PAIN LEVEL 6-10 Pantoprazole Sodium (Protonix Iv) 40 mg IVPUSH DAILY [facility] Last Admin: 12/01/17 09:26 Dose: 40 mg Piperacillin Sod/Tazobactam Sod (Zosyn 3.375gm Ivpb (Pre-Docked)) 3.375 gm IVPB Q8H-IV [facility] Last Admin: 12/01/17 18:00 Dose: 3.375 gm - Objective Vital Signs: Vital Signs Temperature 98.1 F 12/01/17 14:08 Pulse Rate 71 12/01/17 14:08 Respiratory Rate 18 12/01/17 14:08 Blood Pressure 144/87 12/01/17 14:08 O2 Sat by Pulse Oximetry (%) 98 12/01/17 14:08 Constitutional: Yes: No Distress, Calm Cardiovascular: Yes: Regular Rate and Rhythm Respiratory: Yes: Regular, CTA Bilaterally Gastrointestinal: Yes: Soft, Hypoactive Bowel Sounds Musculoskeletal: Yes: WNL Extremities: Yes: WNL Neurological: Yes: Alert, Oriented Psychiatric: Yes: Alert, Oriented Labs: CBC, BMP 12/01/17 08:00 12/01/17 08:00 - ....Imaging Cat Scan: Report Reviewed, Image Reviewed Assessment/Plan ac divertculitis abd pain leukocytosis Problem List - Problems (1) Acute diverticulitis Code(s): K57.92 - DVTRCLI OF INTEST, PART UNSP, W/O PERF OR ABSCESS W/O BLEED (2) Epilepsia Code(s): G40.909 - EPILEPSY, UNSP, NOT INTRACTABLE, WITHOUT STATUS EPILEPTICUS Qualifiers: Epilepsy type: unspecified plan conitnue abx wbc normal ct scan seen and result noted rest as per surgery
[2017-12-02] MEDS: PIPERACILLIN/TAZOB 3.375 GM/50 ML PRE-DOCKED IVPB SCH (02:16)
[2017-12-02] MEDS: HEPARIN NA (PORCINE) 5,000 UNITS/ML 1ML VIAL SQ SCH (06:20)
[2017-12-02] MEDS ORDERED: AMOX TR/POT CLAV 875MG/125MG TABLETS (FP) PO ONE (09:00)
[2017-12-02] MEDS: PANTOPRAZOLE SODIUM 40 MG VIAL IVPUSH SCH (09:36)
--- NOTE | 2017-12-02 10:14 | PN ---
Progress Note (short form) - Note Progress Note: Pt without any complaints of abd pain. Had non-bloody/more formed BM's yesterday several times. Vital Signs Period Temp Pulse Resp BP Sys/Oro Pulse Ox Last 24 Hr 97.8 F-98.1 F 55-71 18-18 114-144/67-87 98-98 GEN: appears comfortable ABD: soft, non-distended, non-tender CBC, BMP 12/01/17 08:00 12/01/17 08:00 CT scan: thickened sigmoid colon with adjacent mesenteric fat inflammation unchanged A/P: 37 yo male with sigmoid diverticular disease, clinically improving Plan for discharge today with oral antibiotics, he remains afebrile without leuckocytosis and an improved clinical exam D/w the patient the need for oral antiobiotics and f/u with Dr. Pizarro Care plan discussed with the medical team
--- NOTE | 2017-12-02 12:09 | DS ---
Physical Exam: SUBJECTIVE: Patient seen and examined, sitting in bedside chair, OBJECTIVE: This is a 37 year old male with hx of epilepsy s/p hard plate insertion ~5 years ago at [facility] in [place] presented with abdominal pain over the last few months and in the last few days it worsening. Last night he was nauseated and vomited, NBNB. He still has lower abdominal tenderness to palpation. He denies fever, chills, sob, cp. Vital Signs Period Temp Pulse Resp BP Sys/Oro Pulse Ox Last 24 Hr 97.8 F-98.1 F 55-71 18-18 114-144/67-87 98-98 PHYSICAL EXAM GENERAL: The patient is awake, alert, and fully oriented, in no acute distress. HEAD: Normal with no signs of trauma. EYES: PERRL, extraocular movements intact, sclera anicteric, conjunctiva clear. ENT: Ears normal, nares patent, oropharynx clear without exudates, moist mucous membranes. NECK: Trachea midline, full range of motion, supple. LUNGS: Breath sounds equal, clear to auscultation bilaterally, no wheezes, no crackles, no accessory muscle use. HEART: Regular rate and rhythm, S1, S2 without murmur, rub or gallop. ABDOMEN: Soft, nontender, nondistended, normoactive bowel sounds, no guarding, no rebound, no hepatosplenomegaly, no masses. EXTREMITIES: 2+ pulses, warm, well-perfused, no edema. NEUROLOGICAL: Cranial nerves II through XII grossly intact. Normal speech, gait not observed. PSYCH: Normal mood, normal affect. SKIN: Warm, dry, normal turgor, no rashes or lesions noted. LABS CBC WBC 6.9 K/mm3 (4.0-10.8) 12/01/17 08:00 RBC 4.89 M/mm3 (4.00-5.60) 12/01/17 08:00 Hgb 15.3 GM/dl (11.7-16.9) 12/01/17 08:00 Hct 43.4 % (35.4-49) 12/01/17 08:00 MCV 88.7 fl (80-96) 12/01/17 08:00 MCH 31.3 pg (25.7-33.7) 12/01/17 08:00 MCHC 35.3 g/dl (32.0-35.9) 12/01/17 08:00 RDW 11.7 % (11.9-15.9) L 12/01/17 08:00 Plt Count 367 K/MM3 (134-434) 12/01/17 08:00 MPV 8.1 fl (7.5-11.1) D 12/01/17 08:00 Neutrophils % 56.8 % (42.8-82.8) 12/01/17 08:00 Lymphocytes % 29.2 % (8-40) 12/01/17 08:00 Monocytes % 9.6 % (3.8-10.2) 12/01/17 08:00 Eosinophils % 3.4 % (0-4.5) 12/01/17 08:00 Basophils % 1.0 % (0-2.0) 12/01/17 08:00 CMP Sodium 136 mmol/L (136-145) 12/01/17 08:00 Potassium 3.8 mmol/L (3.5-5.1) 12/01/17 08:00 Chloride 103 mmol/L (98-107) 12/01/17 08:00 Carbon Dioxide 27 mmol/L (22-28) 12/01/17 08:00 Anion Gap 6 (8-16) L 12/01/17 08:00 BUN 8 mg/dl (7-18) D 12/01/17 08:00 Creatinine 1.1 mg/dl (0.6-1.3) 12/01/17 08:00 Creat Clearance w eGFR > 60 (>60) 12/01/17 08:00 Random Glucose 97 mg/dl (74-106) 12/01/17 08:00 Calcium 8.9 mg/dl (8.4-10.2) 12/01/17 08:00 Phosphorus 4.1 mg/dl (2.5-4.6) 11/30/17 07:18 Magnesium 2.0 mg/dL (1.8-2.4) 12/01/17 08:00 Total Bilirubin 0.9 mg/dl (0.2-1.0) 12/01/17 08:00 AST 13 U/L (10-42) 12/01/17 08:00 ALT 18 U/L (10-40) 12/01/17 08:00 Alkaline Phosphatase 42 U/L (32-92) 12/01/17 08:00 Total Protein 6.6 g/dl (6.4-8.3) 12/01/17 08:00 Albumin 3.7 g/dl (3.5-5.0) 12/01/17 08:00 Lipase 106 U/L (73-393) 11/28/17 07:30 HOSPITAL COURSE: 1. Acute diverticulitis - treated with zosyn throuhgout admission as per ID - ct scan of abd/pelvis reviewed unchanged from prior, extensive acute sigmoid diverticulitis - patient denies any abd pain, tolerating soft diet - will needed outpatient GI follow up last coloncopy was 2 years ago at [facility] normal as per patient. - general surgery consulted and following, pt had several episodes in past 2. Leukocytosis - Resolved 3. Epilepsy - s/p hard plate surgery, pt vague on details - Dose not take meds Date of Admission:11/27/17 Date of Discharge: 12/02/17 Minutes to complete discharge: 45 Discharge Summary Reason For Visit: ACUTE DIVERTICULITIS Current Active Problems Acute diverticulitis (Acute) Epilepsia (Acute) Condition: Stable - Instructions Diet, Activity, Other Instructions: you were admitted to the hospital for diverticulitis Referrals: Petey Pizarro MD [Staff Physician] - Conor Diamond MD [Staff Physician] - Disposition: HOME - Home Medications Comprehensive Discharge Medication List: Ambulatory Orders NK [No Known Home Medication] 11/27/17 This patient is new to me today: No Emergency Visit: Yes ED Registration Date: 11/27/17 Care time: The patient presented to the Emergency Department on the above date and was hospitalized for further evaluation of their emergent condition. Critical Care patient: No - Discharge Referral Referred to [facility] Med P.C.: No
[2017-12-02 13:45] VITALS: BP 122/80; PULSE 62; TEMP 98.1
[2017-12-02] MEDS: DEXTROSE 5%-0.45% SALINE 1,000 ML IV SCH (13:55)
[2017-12-02] MEDS ORDERED: AMOX TR/POT CLAV 875MG/125MG TABLETS (FP) PO SCH (17:30)
== END 2017-12-02 13:51 | disposition home or self-care (01) | DRG 244 ==
LOC: FER 11:40 → FM/S 16:02
PROVIDERS: ADMIT Internal Medicine; ATTEND Nurse Practitioner Family
DX: K57.92 Diverticulitis of intestine, part unspecified, without perforation or abscess without bleeding (principal); D72.829 Elevated white blood cell count, unspecified; G40.909 Epilepsy, unspecified, not intractable, without status epilepticus; E66.9 Obesity, unspecified; Z68.39 Body mass index [BMI] 39.0-39.9, adult; E87.1 Hypo-osmolality and hyponatremia
CPT/HCPCS: 36415; 71045-TC-FY; 74177-TC; 80048; 80053; 81003; 81015; 83690; 83735; 84100; 85025; 93005; 99283-25; J1644